=== PATIENT | male | born 1985 | race Caucasian/White ===

== ENCOUNTER 2023-12-25 08:17 | Outpatient (CLI) | payer OTHER, SELFPAY ==
--- NOTE | ~2023-12-25 | NM_ITS ---
EXAMINATION: NM joselyn stress w perfusion DATE: 12/25/2023 11:38 INDICATION: Chest pain TECHNIQUE: Rest images were obtained following intravenous administration of 10.1 mCi Tc99m tetrofosm in (Myoview). The patient was infused intravenously with Lexiscan (Regadenoson). Then, 33.0 mCi Tc99m tetrofosmin (Myoview) was administered intravenously, and stress images were obtained in the supine position with repeat imaging in the prone position. Data was reconstructed into short axis and horizo ntal and vertical long axis SPECT images. Gated SPECT images were also obtained. COMPARISON: None. FINDINGS: Mild nonreversible perfusion defect consistent with infarct at the apical, apical inferior, apical septal, anteroapical, mid anterior and mid anterolateral segments. No reversible ischemia. Th ere is moderate left ventricular enlargement with estimated end-diastolic volume of 273 mL with globa l hypokinesis and mildly decreased left ventricular ejection fraction measures 45%. IMPRESSION: 1. Mild nonreversible infarcts involving significant portion of the left anterior descending coronary artery vascular distribution and small portion of the right coronary artery vascular distribution as detailed above. No reversible ischemia.. 2. Moderate cardiomegaly and mild global hypokinesis resulting in mildly decreased left ventricular e jection fraction measuring 45%. Reviewed, dictated and finalized at location A. IMPRESSION: 1. Mild nonreversible infarcts involving significant portion of the left anteri or descending coronary artery vascular distribution and small portion of the ri ght coronary artery vascular distribution as detailed above. No reversible isch emia.. 2. Moderate cardiomegaly and mild global hypokinesis resulting in mildly decrea sed left ventricular ejection fraction measuring 45%.
--- NOTE | 2023-12-25 08:26 | ECHO_ITS ---
Patient Info Name: Dmitriy Hawk Age: 38 years : 1985 Gender: Male Ht: 72 in Wt: 324 lbs BSA: 2.80 m2 HR: 55 bpm BP: 173 / 101 mmHg Heart Rhythm: Sinus Rhythm Technical Quality: Good Exam Date: 12/25/2023 8:49 AM Exam Location: Echo Lab Patient Status: Outpatient Admit Date: 12/25/2023 Staff Ordering Physician: Eleazar Adams DO Regrader: Karmen Gannon RDCS Attending Provider: Eleazar Adams DO Referring Physician: Bryan SMITH; Exam Type: CA echo doppler color flow Study Info Indications - other forms of dyspnea Complete two-dimensional, color flow and Doppler transthoracic echocardiogram is performed. Summary 1. Complete two-dimensional, color flow and Doppler transthoracic echocardiogram is performed. 2. Left ventricular chamber dimension is moderately enlarged. 3. There is mild concentric increased left ventricular wall thickness. 4. Left ventricular systolic function is preserved, estimated at 50-55%. 5. The left ventricular diastolic function is abnormal. 6. E/e' 17 is elevated. 7. No pulmonary hypertension, estimated pulmonary arterial systolic pressure is 14 mmHg. Left Ventricle E/e' 17 is elevated. Left ventricular systolic function is preserved, estimated at 50-55%. Left ventricular chamber dimension is moderately enlarged. There is mild concentric increased left ventricular wall thickness. The left ventricular diastolic function is abnormal. Right Ventricle Right ventricular systolic function is normal and with normal TAPSE 2.8 cm. Right ventricular chamber dimension is normal. Left Atria Left atrial chamber dimension is normal. Right Atria Right atrial chamber dimension is normal. Aortic Valve The aortic valve is trileaflet. There is no aortic valve stenosis. There is no aortic valve regurgitation. Pulmonic Valve There is no pulmonic regurgitation. Mitral Valve There is no mitral valve stenosis. There is no mitral valve regurgitation. Tricuspid Valve There is no tricuspid valve regurgitation. No pulmonary hypertension, estimated pulmonary arterial systolic pressure is 14 mmHg. Pericardium/Pleural There is no pericardial effusion. Inferior Vena Cava Normal inferior vena cava with >50% collapse upon inspiration consistent with normal right atrial pressure, 5 mmHg. Aorta The aortic root size at the sinus of Valsalva is normal. Left Ventricular Outflow Tract Name Value Normal LVOT 2D LVOT Diameter 2.1 cm LVOT Doppler LVOT Peak Gradient 4 mmHg LVOT Mean Gradient 2 mmHg LVOT VTI 23 cm LVOT VTI/AV VTI Ratio 0.8 LVOT Stroke Volume 78 ml LVOT CO 4.6 l/min LVOT CI 1.6 l/min/m2 Pulmonic Valve Name Value Normal PV Doppler PV Peak Gradient 4 mmHg Mitral Valve ----
--- NOTE | 2023-12-25 08:31 | EST_ITS ---
Patient Info Name: Dmitriy Hawk Age: 38 years : 1985 Gender: Male Ht: 72 in Wt: 324 lbs BSA: 2.80 m2 HR: 57 bpm BP: 157 / 104 mmHg Heart Rhythm: Sinus Rhythm Exam Date: 12/25/2023 9:59 AM Exam Location: Echo Lab Patient Status: Outpatient Admit Date: 12/25/2023 Staff Ordering Physician: Eleazar Adams DO Attending Provider: Eleazar Adams DO Exercise Technologist: Chitra Taylor CT Exercise Physician: Eleazar Adams DO Exam Type: CA stress joselyn w NM Study Info Indications R06.09 - Other forms of dyspnea A regadenoson stress test was performed. Summary 1. 1. Negative lexiscan stress test for ischemic ST changes by ECG criteria. 2. 2. Baseline hypertension. 3. 3. Nuclear scan to follow and will be reported separately. Please correlate with it. 4. 4. Patient informed of the above results. Protocol: Lexiscan Stress ECG Details Stage: REST Duration (min): 2 min : 6 sec HR (bpm): 60 SBP (mmHg): 157 DBP (mmHg): 104 Stage: REST Duration (min): 7 min : 2 sec HR (bpm): 63 SBP (mmHg): 157 DBP (mmHg): 104 Stage: STAGE 1 Duration (min): 1 min : 0 sec HR (bpm): 72 SBP (mmHg): 157 DBP (mmHg): 104 Stage: RECOVERY Duration (min): 1 min : 0 sec HR (bpm): 76 SBP (mmHg): 175 DBP (mmHg): 87 Stage: RECOVERY Duration (min): 2 min : 0 sec HR (bpm): 71 SBP (mmHg): 175 DBP (mmHg): 87 Stage: RECOVERY Duration (min): 3 min : 0 sec HR (bpm): 70 SBP (mmHg): 175 DBP (mmHg): 87 Stage: RECOVERY Duration (min): 3 min : 34 sec HR (bpm): 71 SBP (mmHg): 177 DBP (mmHg): 93 Rest HR: 63 bpm Peak HR: 79 bpm Rest Sys BP: 157 mmHg Peak Sys BP: 177 mmHg Max Pred HR: 181 bpm % Max Pred HR: 44 % Target HR: 154 bpm Max RPP: 13,983 bpm*mmHg Termination Reason: Completed protocol Cardiac Symptoms: Shortness of breath Total Time: 1 min : 0 sec Rest Quintanilla BP: 104 mmHg Peak Quintanilla BP: 93 mmHg Total Dose: 0.4 mg Resting ECG Sinus rhythm. Stress ECG No ST changes. Arrhythmias None. Report Signatures
== END 2023-12-25 08:18 | disposition home or self-care (01) ==
LOC: ANHCARD 08:18
PROVIDERS: PCP Nurse Practitioner Family; Visit Provider Internal Medicine Cardiovascular Disease
DX: R07.9 Chest pain, unspecified (principal); R06.09 Other forms of dyspnea; R94.39 Abnormal result of other cardiovascular function study
CPT/HCPCS: 78452; 93017; 93306; A9502; J2785